=== PATIENT | female | born 2000 | race Caucasian/White ===

== ENCOUNTER 2023-05-02 05:17 | Emergency (ER) | payer BC, SELFPAY ==
[2023-05-02 05:20] VITALS: BP 147/95; PULSE 154; RESP 16; TEMP 37.1; O2SAT 97; BMI 20.9
[2023-05-02] MEDS: ONDANSETRON PF 4 MG/2 ML VIAL IV (05:29)
[2023-05-02] MEDS: 0.9 % SODIUM CHLORIDE 1,000 ML 1000 ML IV (05:31)
--- NOTE | 2023-05-02 05:32 | ED.NAVMDI1 ---
HPI - Nausea/Vomiting/Diarrhea General Chief complaint: Nausea/Vomiting/Diarrhea Stated complaint: vomiting Time Seen by Provider: 05/02/23 05:29 Source: patient Mode of arrival: walk-in Limitations: no limitations History of Present Illness HPI Narrative: patient presents complaining of recurrent vomiting and diarrhea since last PM. Now has LLQ pain. No urinary symptoms. No fever or chills. Denies hematemesis MD elicited complaint: Reports nausea, vomiting, diarrhea and abdominal pain Related Data Home Medications Medication Instructions Recorded Confirmed etonogestrel 0.12 mg-ethinyl 1 vag ring vaginal .4 weeks 05/02/23 05/02/23 estradiol 0.015 mg/24 hr vaginal ring (EluRyng) Allergies Allergy/AdvReac Type Severity Reaction Status Date / Time No Known Drug Allergies Allergy Verified 05/02/23 05:25 Review of Systems ROS Status of ROS 10 or more systems reviewed and unremarkable except as noted in history and below PFSH PFSH Social History Smoking status: Never smoker Exam Constitutional Vital Signs, click to edit/add: Last Vital Signs Temp 98.8 F 05/02/23 05:20 Pulse 112 H 05/02/23 06:18 Resp 18 05/02/23 06:18 BP 124/75 05/02/23 06:18 Pulse Ox 100 05/02/23 06:18 O2 Del Method Room Air 05/02/23 05:20 Common normals: no apparent distress, average body habitus, oriented x3, no limitations, healthy appearing, alert and well nourished Eye Common normals: EOMs intact bilaterally and conjunctivae normal Respiratory Common normals: normal respiratory effort, no retractions, no use of accessory muscles and clear to auscultation bilaterally Cardio Rate: tachycardic GI Common normals: Normal to inspection, nondistended, normoactive bowel sounds present Other: mild LLQ tenderness Extremity Common normals: normal to inspection and full ROM Neuro Common normals: oriented x3, CN's II-XII intact bilaterally, moves all extremities, no focal motor deficits and no sensory deficits noted Psych Appearance: grossly normal Course Vital Signs Vital signs: Vital Signs Temperature 98.8 F 05/02/23 05:20 Pulse Rate 154 H 05/02/23 05:20 Respiratory Rate 16 05/02/23 05:20 Blood Pressure 147/95 H 05/02/23 05:20 Pulse Oximetry 97 05/02/23 05:20 Oxygen Delivery Method Room Air 05/02/23 05:20 Temperature 98.8 F 05/02/23 05:20 Pulse Rate 112 H 05/02/23 06:18 Respiratory Rate 18 05/02/23 06:18 Blood Pressure 124/75 05/02/23 06:18 Pulse Oximetry 100 05/02/23 06:18 Oxygen Delivery Method Room Air 05/02/23 05:20 MDM - Nausea/Vomiting/Diarrhea MDM Narrative Medical decision making narrative: patient presents with recurrent vomiting and diarrhea. also complaint of LLQ Pain. CT with findings of liquid stool . UA contaminated specimen with evidence of dehydration. Patient tachycardic due to dehydration. Patient still receiving IV fluids at change of shift. Care Transferred to Dr Donald at change of shift Lab Data Labs: Lab Results 05/02/23 Range/Units 05:28 WBC 11.3 H (4.0-11.0) 10^3/uL RBC 4.96 (4.20-5.40) 10^6/uL Hgb 14.9 (12.0-16.0) g/dL Hct 44.5 (36.0-48.0) % MCV 89.7 (81.0-99.0) fL MCH 30.0 (26.7-34.0) pg MCHC 33.5 (29.9-35.2) g/dL RDW 12.2 (11.0-15.0) % Plt Count 328 (150-450) 10^3/uL MPV 10.7 (9.5-13.5) fL Seg Neuts % (Manual) 91.0 Band Neutrophils % 1.0 (0-5) % Lymphocytes % (Manual) 1.0 L (20.5-60.0) % Monocytes % (Manual) 7.0 (1.7-12.0) % Eosinophils % (Manual) 0.0 L (0.9-7.0) % Basophils % (Manual) 0.0 L (0.2-2.0) % Neutrophils # (Manual) 10.28 H (1.4-6.5) 10^3/uL Band Neutrophils # 0.1 (0.0-0.3) 10^3/uL Lymphocytes # (Manual) 0.11 L (1.20-3.80) 10^3/uL Monocytes # (Manual) 0.79 (0.30-0.80) 10^3/uL Eosinophils # (Manual) 0.00 (0.00-0.70) 10^3/uL Basophils # (Manual) 0.00 (0.00-0.10) 10^3/uL Sodium 139 (136-145) mmol/L Potassium 4.0 (3.5-5.1) mmol/L Chloride 101 (98-107) mmol/L Carbon Dioxide 22.8 (21.0-32.0) mmol/L Anion Gap 19.2 BUN 20.0 H (7.0-18.0) mg/dL Creatinine 0.98 (0.55-1.02) mg/dL Est GFR ( Amer) >60 (>=60) Est GFR (Non-Af Amer) >60 (>=60) BUN/Creatinine Ratio 20.4 Glucose 118 H (74-106) mg/dL Lactate 1.4 (0.4-2.0) mmol/L Calcium 9.1 (8.5-10.1) mg/dL Total Bilirubin 0.8 (0.2-1.0) mg/dL AST 26 (15-37) U/L ALT 14 (14-59) U/L Alkaline Phosphatase 68 (46-116) U/L Total Protein 8.2 (6.4-8.2) g/dL Albumin 4.5 (3.4-5.0) g/dL Globulin 3.7 g/dL Albumin/Globulin Ratio 1.2 Lipase 18.0 (16.0-77.0) U/L Urine Color Yellow (YELLOW) Urine Clarity Clear (CLEAR) Urine pH 6.0 (5.0-9.0) Ur Specific [place] >=1.030 A (1.005-1.025) Urine Protein 30 A (NEG/TRACE) mg/dL Urine Glucose (UA) Negative (NEGATIVE) mg/dL Urine Ketones >=80 A (NEGATIVE) mg/dL Urine Occult Blood Moderate A (NEGATIVE) Urine Nitrite Negative (NEGATIVE) Urine Bilirubin Moderate A (NEGATIVE) Urine Urobilinogen 0.2 (0.2-1.0) EU/dL Ur Leukocyte Esterase Trace A (NEGATIVE) Urine RBC 5-10 A (0-2) #/HPF Urine WBC 0-2 A (NONE SEEN) #/HPF Ur Squamous Epith Cells Many A (NONE/RARE) #/LPF Urine Crystals None seen (None Seen) #/HPF Urine Bacteria Trace A (NONE SEEN) #/HPF Urine Casts None seen (NONE SEEN) #/LPF Urine Mucus Small A (NONE SEEN) Urine HCG, Qual Negative (NEGATIVE) Imaging Data Abdominal x-ray: Radiologist's impression: ITS Impressions Abdomen/Pelvis CT 05/02/23 05:35 IMPRESSION: 1. Liquid stool throughout the colon, in keeping with diarrhea. There is no evidence of bowel obstruction. 2. Normal appendix. Electronically authenticated by: Radha MERCHANT Date: 05/02/2023 06:27 Discharge Plan Discharge Patient Disposition: Still a Patient
--- NOTE | 2023-05-02 05:35 | CT_ITS ---
The [address] [address] Patient Name: JONATHON LOPEZ MRN: [id number] date: 2000 Sex: F Assigned Patient Location: ER Current Patient Location: ER Accession/Order Number: [id number] Exam Date: 05/02/2023 05:58 Report Date: 05/02/2023 06:27 At the request of: JAQUAN FUENTES Procedure: CT abdomen pelvis w con EXAM: CT abdomen pelvis w con HISTORY: vomiting , LLQ pain COMPARISON: None. TECHNIQUE: Axial CT images through the abdomen and pelvis were obtained after the intravenous administration of 100 mL Omnipaque 300 contrast. Coronal and sagittal reformats were obtained. Dose reduction techniques were achieved by using automated exposure control and/or adjustment of mA and/or kV according to patient size and/or use of iterative reconstruction technique. FINDINGS: The visualized portions of the lung bases are clear. Abdomen: The liver and spleen enhance homogeneously without focal lesion. There is no intra or extrahepatic biliary duct dilatation. The gallbladder is unremarkable. Liquid stool is seen throughout the colon without evidence of bowel obstruction. Otherwise, the pancreas, adrenal glands, kidneys, and bowel loops, including the appendix, are unremarkable. There is no mesenteric or retroperitoneal lymphadenopathy. Pelvis: The bladder and rectum are unremarkable. There is no iliac or inguinal lymphadenopathy. The uterus is present. The ovaries appear within normal limits by CT. Bone windows show no aggressive osseous lesions. CT/CT abdomen pelvis w con IMPRESSION: 1. Liquid stool throughout the colon, in keeping with diarrhea. There is no evidence of bowel obstruction. 2. Normal appendix. Electronically authenticated by: Radha MERCHANT Date: 05/02/2023 06:27
[2023-05-02 05:46] LABS: Bilirubin Urine MODERATE (NEGATIVE); Blood Urine MODERATE (NEGATIVE); Clarity Urine CLEAR (CLEAR); Color Urine YELLOW (YELLOW); Glucose Urine UA NEGATIVE (NEGATIVE); Hematocrit 44.5 % (36.0-48.0); Hemoglobin 14.9 g/dL (12.0-16.0); Ketones Urine >=80 mg/dL (NEGATIVE); Leukocyte Esterase Urine TRACE (NEGATIVE); Mean Corpuscular HGB Conc 33.5 g/dL (29.9-35.2); Mean Corpuscular Volume 89.7 fL (81.0-99.0); Mean Platelet Volume 10.7 fL (9.5-13.5); Nitrite Urine NEGATIVE (NEGATIVE); Platelet Count 328 10^3/uL (150-450); Protein Urine 30 mg/dL (NEG/TRACE); Red Blood Count 4.96 10^6/uL (4.20-5.40); Red Cell Distribution Width 12.2 % (11.0-15.0); Specific Gravity Urine >=1.030 (1.005-1.025); Urobilinogen Urine 0.2 EU/dL (0.2-1.0); White Blood Count 11.3 10^3/uL (4.0-11.0)
[2023-05-02 05:49] LABS: Urine Microscopic Indicated YES
[2023-05-02 05:53] LABS: HCG Qualitative Urine* NEGATIVE (NEGATIVE)
[2023-05-02 05:57] LABS: Bacteria Urine TRACE #/HPF (NONE SEEN); Cast Seen? NONE SEEN #/LPF (NONE SEEN); Crystals Seen? None Seen #/HPF (None Seen); Mucus Urine SMALL (NONE SEEN); Squamous Epithelial Cell Urine MANY #/LPF (NONE/RARE); WBC Urine 0-2 #/HPF (NONE SEEN)
[2023-05-02 06:03] LABS: Alanine Aminotransferase 14 U/L (14-59); Albumin Globulin Ratio 1.2; Albumin Level 4.5 g/dL (3.4-5.0); Alkaline Phosphatase 68 U/L (46-116); Anion Gap 19.2; Aspartate Amino Transferase 26 U/L (15-37); BUN Creatinine Ratio 20.4; Bilirubin Total 0.8 mg/dL (0.2-1.0); Calcium 9.1 mg/dL (8.5-10.1); Carbon Dioxide 22.8 mmol/L (21.0-32.0); Chloride 101 mmol/L (98-107); Estimated GFR (African America >60 (>=60); Estimated GFR (Non-African Ame >60 (>=60); Globulin 3.7 g/dL; Glucose 118 mg/dL (74-106); Sodium 139 mmol/L (136-145); Total Protein 8.2 g/dL (6.4-8.2)
[2023-05-02 06:06] LABS: Lactate/Lactic Acid 1.4 mmol/L (0.4-2.0)
[2023-05-02 06:14] LABS: Band Neutrophils Absolute 0.1 10^3/uL (0.0-0.3); Lymphocytes Absolute Manual 0.11 10^3/uL (1.20-3.80); Segmented Neut Absolute Manual 10.28 10^3/uL (1.4-6.5)
[2023-05-02] MEDS: FENTANYL CITRATE/PF 100 MCG/2 ML VIAL 50 MCG IV (06:14)
[2023-05-02 06:15] LABS: Monocytes Absolute Manual 0.79 10^3/uL (0.30-0.80)
[2023-05-02 06:18] VITALS: BP 124/75; PULSE 112; RESP 18; O2SAT 100
--- NOTE | 2023-05-02 06:18 | PC.NURSE ---
Pt returns from CT, reports improvement iin nausea.
[2023-05-02 07:02] VITALS: PULSE 100; RESP 16; O2SAT 100
[2023-05-02] MEDS: 0.9 % SODIUM CHLORIDE 1,000 ML 999 ML IV (07:03)
[2023-05-02 07:28] VITALS: BP 118/74; PULSE 100; RESP 18; O2SAT 99
[2023-05-02 08:01] VITALS: BP 120/78; PULSE 100; RESP 18; O2SAT 99
== END 2023-05-02 08:05 | disposition home or self-care (01) ==
PROVIDERS: Internal Medicine; Emergency Provider Emergency Medicine; PCP Family Medicine
DX: K52.9 Noninfective gastroenteritis and colitis, unspecified (principal); Z97.5 Presence of (intrauterine) contraceptive device
CPT/HCPCS: 36415; 74177; 80053; 81001; 83605; 83690; 84703; 85007; 85027; 96361; 96374; 96375; 99285; J2405; J3010; Q9967